=== PATIENT | female | born 1990 ===

== ENCOUNTER → 2016-04-27 | Outpatient (REF) | LOC: WSOH 10:50 | DX: Z02.89 Encounter for other administrative examinations (principal) ==

== ENCOUNTER → 2016-04-27 | Outpatient (REF) | LOC: WSOH 11:22 | DX: Z02.89 Encounter for other administrative examinations (principal) ==

== ENCOUNTER → 2016-05-03 | Outpatient (REF) | LOC: WSC 13:00 | DX: Z11.1 Encounter for screening for respiratory tuberculosis (principal) ==

== ENCOUNTER 2016-05-21 17:36 | Emergency (ER) | payer OTHER ==
[~2016-05-21] VITALS: Ht 160 cm; Wt 40.9 kg
[2016-05-21 17:43] VITALS: BP 101/77
[2016-05-21 20:52] VITALS: PULSE 86; TEMP 98.5
== END 2016-05-21 20:53 | disposition home or self-care (01) ==
LOC: COL.ER 17:36
DX: J02.9 Acute pharyngitis, unspecified (principal); R59.0 Localized enlarged lymph nodes

== ENCOUNTER 2017-03-10 19:24 | Inpatient (IN) | payer BC ==
[~2017-03-10] VITALS: Wt 63.2 kg
[2017-03-10 19:43] VITALS: BP 126/60; PULSE 87; TEMP 98
[2017-03-10 19:45] VITALS: BP 126/60; PULSE 87; TEMP 98
[2017-03-10 19:51] VITALS: BP 126/60; PULSE 87; TEMP 98
[2017-03-10] MEDS ORDERED: PRENATAL MVI (19:57)
[2017-03-10 21:06] VITALS: BP 114/70; PULSE 102
[2017-03-10 22:00] VITALS: BP 124/93; PULSE 103
[2017-03-10 22:38] LABS: HEMATOCRIT 39.1 % (37.0-47.0); HEMOGLOBIN 13.3 g/dl (12.5-16.0); MEAN CELL VOLUME 88 fl (80.0-100.0); MEAN CORPUSCULAR HEMOGLOBIN 30 pg (27.0-31.0); MEAN CORPUSCULAR HGB CONC 34 g/dl (33.0-37.0); MEAN PLATELET VOLUME 12.2 fl (7.4-10.4); PLATELET COUNT 225 K/mm3 (130-400); RED BLOOD COUNT 4.47 M/mm3 (4.10-5.30)
[2017-03-10 22:42] LABS: WHITE BLOOD COUNT 19.9 K/mm3 (4.8-10.8)
[2017-03-10 22:43] LABS: ADD PATHOLOGY DIFF REVIEW NO
[2017-03-10 22:59] LABS: BAND 11 % (0-10); LYMPHOCYTE 12 % (20.0-51.0); METAMYELOCYTE 1 % (0-0); NEUTROPHILS 74 % (42.0-75.2); TOTAL CELLS COUNTED 100
[2017-03-10 23:00] LABS: ANISOCYTOSIS 1+; MICROCYTOSIS 1+
[2017-03-11] VITALS (43 sets, daily range): BP systolic 100–147; BP diastolic 7–87; PULSE 91–127; TEMP 97.6–99.7
[2017-03-12 01:45] VITALS: BP 113/75; PULSE 84; TEMP 98.4
[2017-03-12 06:45] VITALS: BP 110/75; PULSE 94; TEMP 98.5
[2017-03-12 07:51] LABS: BASO # 0.1 (0.0-0.2); BASO % 0.4 % (0.0-2.0); EOS # 0.2 (0.0-0.7); EOS % 0.9 % (0-4.0); GRAN # 14.7 (1.4-6.5); GRAN % 77.5 % (42.2-75.2); LYMPH # 2.9 (1.2-3.4); LYMPH % 15.5 % (20.0-51.0); MEAN CELL VOLUME 89 fl (80.0-100.0); MEAN CORPUSCULAR HGB CONC 33 g/dl (33.0-37.0); MEAN PLATELET VOLUME 12.1 fl (7.4-10.4); MONO # 0.9 (0.1-0.6); MONO % 4.5 % (1.7-9.3); PLATELET COUNT 171 K/mm3 (130-400); RED BLOOD COUNT 3.21 M/mm3 (4.10-5.30); WHITE BLOOD COUNT 18.9 K/mm3 (4.8-10.8)
[2017-03-12 07:58] LABS: HEMATOCRIT 28.7 % (37.0-47.0); HEMOGLOBIN 9.6 g/dl (12.5-16.0); MEAN CORPUSCULAR HEMOGLOBIN 30 pg (27.0-31.0)
[2017-03-12 16:15] VITALS: BP 114/73; PULSE 94; TEMP 98.4
[2017-03-12 23:15] VITALS: BP 108/67; PULSE 72; TEMP 98.1
[2017-03-13 08:00] VITALS: BP 111/81; PULSE 96; TEMP 98.2
[2017-03-13] MEDS ORDERED: IBU600 MG PO (08:43)
== END 2017-03-13 11:40 | disposition home or self-care (01) | DRG 775 ==
LOC: LDRO 19:24 → LDR 21:10 → OB 03-11 16:15
PROVIDERS: Obstetrics & Gynecology; Student in an Organized Health Care Education/Training Program
PROC: 10D07Z6 Extraction of Products of Conception, Vacuum, Via Natural or Artificial Opening (ICD-10-PCS; principal; 2017-03-11)
PROC: 0KQM0ZZ Repair Perineum Muscle, Open Approach (ICD-10-PCS; 2017-03-11)
DX: O48.0 Post-term pregnancy (principal); O75.81 Maternal exhaustion complicating labor and delivery; O76 Abnormality in fetal heart rate and rhythm complicating labor and delivery; O70.1 Second degree perineal laceration during delivery; O77.0 Labor and delivery complicated by meconium in amniotic fluid; Z3A.40 40 weeks gestation of pregnancy; Z37.0 Single live birth
CPT/HCPCS: J2400; J2590; J7120

== ENCOUNTER 2017-04-07 13:26 | Emergency (ER) | payer BC ==
[~2017-04-07] VITALS: Ht 160 cm; Wt 52.3 kg
[~2017-04-07 13:26] MED LIST: IBU600 MG PO; PRENATAL MVI
[2017-04-07 13:28] VITALS: BP 108/74; TEMP 98.3
[2017-04-07 14:29] VITALS: PULSE 82
== END 2017-04-07 14:30 | disposition home or self-care (01) ==
LOC: COL.ER 13:26
DX: M54.31 Sciatica, right side (principal)